=== PATIENT | male | born 1985 | race Caucasian/White ===

== ENCOUNTER 2020-01-01 05:47 | Emergency (ER) | payer MEDICAID ==
[~2020-01-01] VITALS: Ht 182.9 cm; Wt 90.0 kg
[~2020-01-01 05:47] MED LIST: AMOX-419 PO
[2020-01-01] MEDS ORDERED: AMOX-422 PO (06:37)
[2020-01-01] MEDS ORDERED: amox tr/potassium clavulanate 875/125mg TAB PO ONE (06:40)
[2020-01-01] MEDS: TETanus/Pertussis (Acell)/Diphther VAC/PF (Tdap-Adult) 0.5ml syringe IMVAC ONE ×2 (06:58→06:59)
[2020-01-01 07:05] VITALS: BP 146/90
== END 2020-01-01 07:07 | disposition home or self-care (01) ==
LOC: ER 05:49
DX: S41.152A Open bite of left upper arm, initial encounter (principal); F15.90 Other stimulant use, unspecified, uncomplicated; M79.622 Pain in left upper arm; Z59.0 Homelessness; Z79.2 Long term (current) use of antibiotics; W54.0XXA Bitten by dog, initial encounter; Y93.89 Activity, other specified; Y92.89 Other specified places as the place of occurrence of the external cause; Y99.8 Other external cause status
CPT/HCPCS: 90471; 90715; 99283

== ENCOUNTER 2020-01-04 10:41 | Emergency (ER) | payer MEDICAID ==
[~2020-01-04] VITALS: Ht 182.9 cm; Wt 89.5 kg
[~2020-01-04 10:41] MED LIST changes: +AMOX-422 PO
[2020-01-04 10:42] VITALS: BP 188/108
== END 2020-01-05 02:47 | disposition left against medical advice (07) ==
LOC: ER 10:42
DX: T14.8XXA Other injury of unspecified body region, initial encounter (principal); R60.9 Edema, unspecified

== ENCOUNTER 2020-01-08 23:50 | Emergency (ER) | payer MEDICAID ==
[~2020-01-08] VITALS: Ht 182.9 cm; Wt 90.0 kg
--- NOTE | 2020-01-09 00:22 | NUR ---
HE IS TOO WIGGLY FOR AN EKG RIGHT NOW
[2020-01-09] MEDS ORDERED: normal saline 1000ML IV soln IVB ONE (00:25)
[2020-01-09] MEDS ORDERED: LORazepam 2 mg/ml vial IV STA (00:34)
--- NOTE | 2020-01-09 00:38 | NUR ---
SECURITY HAS BEEN IN THE ROOM THIS ENTIRE TIME TO ASSURE MY SAFETY.
--- NOTE | 2020-01-09 00:53 | NUR ---
2ND LITER OF NS INFUSING AND HE HAS DRANK 1 L OF WATER WELL. HE IS MORE CALM AND REDIRECTABLE. LIGHTS DIMMED.
[2020-01-09 01:04] LABS: BASOPHILS # (AUTO) 0.1 X10'3 (0-0.2); BASOPHILS % (AUTO) 0.6 % (0-1); EOSINOPHILS % (AUTO) 0.1 % (0-6); HEMATOCRIT 47.3 % (42.0-52.0); HEMOGLOBIN 16.3 g/dl (14.0-17.9); LYMPHOCYTES # (AUTO) 0.9 X10'3 (1.1-4.8); LYMPHOCYTES % (AUTO) 7.4 % (21-51); MEAN CORPUSCULAR HEMOGLOBIN 31.6 PG (27.0-31.0); MEAN CORPUSCULAR HGB CONC 34.4 g/dL (33.0-36.5); MEAN CORPUSCULAR VOLUME 91.7 FL (78-98); MEAN PLATELET VOLUME 8.3 FL (7.4-10.4); MONOCYTES # (AUTO) 0.7 X10'3 (0-0.9); MONOCYTES % (AUTO) 5.5 % (2-12); NEUTROPHILS % (AUTO) 86.4 % (42-75); PLATELET COUNT 263 X10'3 (140-440); RED BLOOD COUNT 5.16 X10'6 (4.70-6.10); RED CELL DISTRIBUTION WIDTH 12.8 % (11.5-14.5); WHITE BLOOD COUNT 12.7 X10'3 (4.5-11.0)
--- NOTE | 2020-01-09 01:15 | NUR ---
LITER NUMBER 3 INFUSING ON PRESSURE BAG, HE STOOD AT BS AND VOIDED INTO URINAL.
[2020-01-09 01:18] LABS: PARTIAL THROMBOPLASTIN TIME 27 SECONDS (22-32)
[2020-01-09 01:23] LABS: ALANINE AMINOTRANSFERASE 30 U/L (12-78); ALBUMIN 4.4 G/DL (3.4-5.0); ALBUMIN/GLOBULIN RATIO 1.1 (1.1-1.5); ALKALINE PHOSPHATASE 84 IU/L (46-116); ANION GAP 14 (8-16); ASPARTATE AMINO TRANSFERASE 27 U/L (10-37); BILIRUBIN,TOTAL 1.2 MG/DL (0.1-1.0); BLOOD UREA NITROGEN 18 MG/DL (7-18); BUN/CREATININE RATIO 12.7 (5.4-32.0); CALCIUM 9.7 MG/DL (8.5-10.1); CHLORIDE 105 MMOL/L (99-107); CREATININE 1.42 MG/DL (0.60-1.10); GLUCOSE 132 MG/DL (70-104); POTASSIUM 3.3 MMOL/L (3.5-5.1); SODIUM 148 MMOL/L (135-145); TOTAL PROTEIN 8.5 G/DL (6.4-8.2); eGFR 57 ML/MIN
[2020-01-09 01:26] LABS: CREATINE KINASE 424 U/L (39-308); ETHANOL < 0.010 GM/DL (0.0-0.010)
--- NOTE | 2020-01-09 01:30 | NUR ---
HAD HIM STAND AND I CHANGED HIS SHEET IT GOT A LITTLE WET FROM AN IV FLUID. WARM BLANKET TO HIS SKIN.
[2020-01-09 01:35] LABS: CLARITY,URINE CLEAR (Clear); COLOR,URINE YELLOW (Yellow); GLUCOSE, URINE NEGATIVE (Neg); KETONES,URINE TRACE mg/dl (Neg); LEUKOCYTE ESTERASE ,URINE NEGATIVE (Neg); NITRITES, URINE NEGATIVE (Neg); OCCULT BLOOD,URINE NEGATIVE (Neg); PROTEIN,URINE TRACE mg/dl (Neg); UROBILINOGEN,URINE 0.2 E.U/dL (0.2-1.0)
[2020-01-09 01:41] LABS: UA COLLECTION TYPE VOIDED
[2020-01-09 01:44] LABS: BACTERIA,URINE FEW /HPF (Neg); CAL OXALATE CRYSTALS FEW /HPF (NEGATIVE); MUCUS STRANDS FEW /LPF (Neg); RBC,URINE NONE SEEN /HPF (0-2); SQUAMOUS EPITHELIAL CELL,UR FEW /LPF (FEW); WBC,URINE 0-4 /HPF (0-4)
[2020-01-09 01:45] LABS: COARSE GRANULAR CAST 0-3 /LPF (NEGATIVE); FINE GRANULAR CAST 0-3 /LPF (NEGATIVE); HYALINE CASTS 0-3 /LPF (NEGATIVE)
--- NOTE | 2020-01-09 01:58 | NUR ---
HE STOOD AT AND VOIDED [address] AND HIS URINE IS LIGHTENING IN COLOR, I CHANGED HIS BED AGAIN, THIS TIME HE HAD SPILLED HIS WATER. HE IS MORE STEADY ON HIS FEET. AND HE SPOKE A FEW THINGS TO ME.
[2020-01-09 02:06] LABS: URINE AMPHETAMINE SCREEN POSITIVE (Neg); URINE BARBITUATE SCREEN NEGATIVE (Neg); URINE BENZODIAZEPINES SCREEN NEGATIVE (Neg); URINE CANNABINOID SCREEN POSITIVE (Neg); URINE COCAINE SCREEN NEGATIVE (Neg); URINE METHADONE SCREEN NEGATIVE (Neg); URINE OPIATE SCREEN NEGATIVE (Neg); URINE PHENCYCLIDINE SCREEN NEGATIVE (Neg)
--- NOTE | 2020-01-09 02:38 | NUR ---
PT IS ASLEEP
--- NOTE | 2020-01-09 03:57 | NUR ---
pt remains asleep
--- NOTE | 2020-01-09 05:12 | NUR ---
pt is still asleep, NAD and RR 18.
[2020-01-09] MEDS ORDERED: LORazepam 1 MG tablet PO ONE (08:05)
[2020-01-09] MEDS ORDERED: lamoTRIgine 25mg tablet PO SCH (08:05)
[2020-01-09 09:11] VITALS: BP 112/73
[2020-01-10] MEDS ORDERED: lamoTRIgine 25mg tablet PO SCH (08:00)
== END 2020-01-09 09:24 | disposition home or self-care (01) ==
LOC: ER 23:51
DX: F15.90 Other stimulant use, unspecified, uncomplicated (principal); E86.0 Dehydration; Z59.0 Homelessness; Z79.2 Long term (current) use of antibiotics
CPT/HCPCS: 36415; 71045; 80053; 80305; 80320; 81001; 82550; 85025; 85610; 85730; 93005; 96361; 96374; 99285; J2060; J7030

== ENCOUNTER 2022-04-30 01:04 | Emergency (ER) | payer MEDICAID ==
[~2022-04-30] VITALS: Ht 183.5 cm; Wt 81.8 kg
[~2022-04-30 01:04] MED LIST changes: -AMOX-422 PO
[2022-04-30] MEDS ORDERED: LORazepam 1 MG tablet PO ONE (01:15)
[2022-04-30] MEDS ORDERED: magnesium oxide 400mg tablet PO ONE (01:15)
[2022-04-30] MEDS ORDERED: chlordiazePOXIDE 25mg capsule PO ONE (01:15)
[2022-04-30 01:23] VITALS: BP_SYST 152
[2022-04-30 02:13] VITALS: BP_DIAS 134
[2022-04-30 03:43] LABS: URINE AMPHETAMINE SCREEN POSITIVE (Neg); URINE BARBITUATE SCREEN NEGATIVE (Neg); URINE BENZODIAZEPINES SCREEN NEGATIVE (Neg); URINE CANNABINOID SCREEN NEGATIVE (Neg); URINE COCAINE SCREEN NEGATIVE (Neg); URINE METHADONE SCREEN NEGATIVE (Neg); URINE OPIATE SCREEN NEGATIVE (Neg); URINE PHENCYCLIDINE SCREEN NEGATIVE (Neg)
== END 2022-04-30 02:15 ==
LOC: ER 01:05
DX: F15.10 Other stimulant abuse, uncomplicated (principal); R00.0 Tachycardia, unspecified; F17.200 Nicotine dependence, unspecified, uncomplicated; F12.10 Cannabis abuse, uncomplicated; J45.909 Unspecified asthma, uncomplicated; Z79.899 Other long term (current) drug therapy; Z79.1 Long term (current) use of non-steroidal anti-inflammatories (NSAID)
CPT/HCPCS: 80305; 93005; 99284

== ENCOUNTER 2022-04-30 02:41 | Emergency (ER) | payer MEDICAID, OTHER ==
[~2022-04-30] VITALS: Ht 182.9 cm; Wt 81.8 kg
[2022-04-30 03:36] VITALS: BP 151/94
== END 2022-04-30 03:50 | disposition home or self-care (01) ==
LOC: ER 02:42
DX: F19.10 Other psychoactive substance abuse, uncomplicated (principal); F17.200 Nicotine dependence, unspecified, uncomplicated; F12.10 Cannabis abuse, uncomplicated; J45.909 Unspecified asthma, uncomplicated; Z59.00 Homelessness unspecified; Z79.899 Other long term (current) drug therapy; Z79.1 Long term (current) use of non-steroidal anti-inflammatories (NSAID)
CPT/HCPCS: 99283